=== PATIENT | male | born 1950 | race Caucasian/White ===

== ENCOUNTER 2025-01-18 20:22 | Emergency (ER) | payer OTHER, MEDICARE ==
[2025-01-18] MEDS ORDERED: KETOROLAC 30 MG/ML INJ ONE (21:27)
[2025-01-18] MEDS ORDERED: METOCLOPRAMIDE 10 MG/2mL INJ ONE (21:27)
[2025-01-18] MEDS ORDERED: NA CHLORIDE 0.9% 500 ML ONE (21:27)
--- NOTE | 2025-01-18 21:43 | RAD REPORT ---
EXAMINATION: Head Brain Wo Cont CLINICAL INDICATION: Male, 74 years old.headache new onset TECHNIQUE: Axial CT images from the skull base to the vertex without intravenous contrast. Coronal an d sagittal reformatted images were created from the data set. One or more of the following dose reduction techniques were used: Automated exposure control, adjustment of the mA and/or kV according to patient size, and/or iterative reconstruction. Unless otherwise specified, incidental findings do not require dedicated imaging follow-up. [id number]. COMPARISON: No prior exams FINDINGS: INTRACRANIAL: Acute intracranial hemorrhage at the prepontine cistern and extending into the upper ce rvical canal. 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 No hydrocephalus. No mass effect or midline shift. No significant white matter disease. VASCULATURE: No visualized abnormalities in the arteries or dural venous sinuses. SCALP/SKULL: No calvarial fracture identified. No acute soft tissue abnormality. SINUSES: The visualized paranasal sinuses are mostly clear. No significant mastoid fluid. IMPRESSION: Acute intracranial hemorrhage at the prepontine cistern which may be either aneurysmal or nonaneurysm al. The right cerebral hemisphere infarct. The findings were communicated to Dr. Gonzalez on 01/18/2025 9:40PM.
[2025-01-18 21:52] LABS: ALT/SGPT 58.0 U/L (16-61); AST/SGOT 18.0 U/L (15-37); Albumin 3.7 g/dL (3.4-5.0); Albumin/Globulin Ratio 1.1 (1.1-1.8); Alkaline Phosphatase 55.0 U/L (45-117); Anion Gap 10.7 mEq/L (5.0-15.0); BUN Blood Urea Nitrogen 12.0 mg/dL (7-18); Globulin 3.4 g/dL (2.3-3.5); Glucose Level 160.0 mg/dL (74-106); Potassium 3.7 mEq/L (3.5-5.1)
[2025-01-18] MEDS ORDERED: ONDANSETRON 4 MG/2 ML VIAL ONE (21:59)
[2025-01-18] MEDS ORDERED: FENTANYL CITR 100 MCG/2 ML ONE (21:59)
[2025-01-18] MEDS ORDERED: TRANEXAMIC ACID 1,000 MG/10 ML VIAL IV ONE (22:00)
[2025-01-18] MEDS ORDERED: NA CHLORIDE 0.9% 100 ML ONE (22:01)
[2025-01-18] MEDS ORDERED: Nicardipine/NS 25 MG/250 ML KIT IV ONE (22:09)
[2025-01-18 22:15] LABS: Absolute Lymphocytes (CBC) 0.9 K/uL (0.7-4.9); Hematocrit 39.3 % (39.6-49.0); Hemoglobin 13.6 g/dL (13.6-17.9); MCH 31.4 pg (27.0-35.0); MCHC 34.6 g/dL (32.0-36.0); MCV 90.9 fL (80-100); MPV 7.9 fL (7.6-11.3); Nucleated RBC Absolute Count 0.0 (0-0); Nucleated Red Blood Cells % 0.1 % (0-0); RBC Red Blood Cell Count 4.33 M/uL (4.33-5.43); White Blood Count 9.90 thou/uL (4.3-10.9)
[2025-01-18 22:26] LABS: PT Prothrombin Time 13.7 SECONDS (10-13.0); Protime INR 1.22
--- NOTE | 2025-01-18 22:45 | EDPHYS ---
Physician Documentation [facility] Name: Guido Byrne Age: 74 yrs Sex: Male : 1950 Arrival Date: 01/18/2025 Time: 20:22 Bed 10 Private MD: ED Physician Eben Gonzalez HPI: 01/18 20:29 This 74 yrs old Other Race Male presents to ER via Unassigned with complaints of sp4 Headache, Cough. 22:41 74-year-old male presents with acute onset of moderate to severe headache and neck pain sp4 after a coughing fit. . Historical: - Allergies: 20:34 Percodan; cp4 - Immunization history:: Adult Immunizations up to date. - Infectious Disease History:: Denies. - Social history:: Smoking status: Patient denies any tobacco usage or history of. - Family history:: not pertinent. ROS: 22:41 Constitutional: Negative for fever, chills, and weight loss, positive for moderate to sp4 severe headache 22:41 All other systems are negative, Exam: 22:37 Constitutional: This is a well developed, well nourished patient who is awake, alert, sp4 and in no acute distress. Head/Face: Normocephalic, atraumatic. Eyes: Pupils equal round and reactive to light, extra-ocular motions intact. Lids and lashes normal. Conjunctiva and sclera are not injected. Cornea within normal limits. Periorbital areas with no swelling, redness, or edema. ENT: Nares patent. No nasal discharge, no septal abnormalities noted. Tympanic membranes are normal and external auditory canals are clear. Oropharynx with no redness, swelling, or masses, exudates, or evidence of obstruction, uvula midline. Mucous membranes moist. Neck: Trachea midline, no thyromegaly or masses palpated, and no cervical lymphadenopathy. Supple, full range of motion without nuchal rigidity, or vertebral point tenderness. Chest/axilla: Normal chest wall appearance and motion. Nontender with no deformity. No lesions are appreciated. Cardiovascular: Regular rate and rhythm with a normal S1 and S2. No gallops, murmurs, or rubs. No pulse deficits. Respiratory: Lungs have equal breath sounds bilaterally, clear to auscultation and percussion. No rales, rhonchi or wheezes noted. No increased work of breathing, no retractions or nasal flaring. Abdomen/GI: Soft, with normal bowel sounds. No distension or tympany. No guarding or rebound. No evidence of tenderness throughout. Back: No spinal tenderness. No costovertebral tenderness. Skin: Warm, dry with normal turgor. Normal color with no rashes, no lesions, and no evidence of cellulitis. MS/ Extremity: Pulses equal, no cyanosis. Neurovascular intact. Full, normal range of motion. Neuro: Awake and alert, GCS 15, oriented to person, place, time, and situation. Cranial nerves II-XII grossly intact. Motor strength 5/5 in all extremities. Sensory grossly intact. Psych: Awake, alert, with orientation to person, place and time. Behavior, mood, and affect are within normal limits 22:37 ECG was reviewed by the Attending Physician. EKG 2209 rate 74, normal sinus rhythm normal EKG Vital Signs: 20:32 BP 174 / 100; Pulse 81; Resp 18; Temp 97.8; Pulse Ox 100% ; Weight 126.55 kg; Height 5 cp4 ft. 10 in. ; Pain 7/10; 21:45 BP 168 / 89; Pulse 75; Resp 18; Pulse Ox 97% on R/A; dd2 22:00 BP 164 / 107; Pulse 90; Resp 18; Pulse Ox 97% ; dd2 22:14 BP 152 / 76; Pulse 84; Resp 18; Pulse Ox 100% ; cp4 22:24 BP 143 / 76; cp4 22:48 BP 141 / 82; Pulse 76; Resp 18; Pulse Ox 99% ; cp4 20:32 Body Mass Index 40.03 (126.55 kg, 177.8 cm) cp4 20:32 Pain Scale: Adult cp4 NIH Stroke Scale Scores: 22:37 NIHSS Score: 0 sp4 [place] Coma Score: 21:03 Eye Response: spontaneous(4). Motor Response: obeys commands(6). Verbal Response: dd2 oriented(5). Total: 15. 22:37 Eye Response: spontaneous(4). Motor Response: obeys commands(6). Verbal Response: sp4 oriented(5). Total: 15. 22:42 Eye Response: spontaneous(4). Motor Response: obeys commands(6). Verbal Response: sp4 oriented(5). Total: 15. MDM: 20:33 Medical Screening Exam initiated sp4 22:42 Differential diagnosis: cervical epidural bleed, cluster headache, epidural hematoma, sp4 glaucoma, herpes zoster, migraine, otitis, tension headache, vasomotor headache. Data reviewed: vital signs, nurses notes, lab test result(s), EKG, radiologic studies, CT scan. 22:43 ED course: EXAMINATION: Head Brain Wo Cont CLINICAL INDICATION: Male, 74 years sp4 old.headache new onset TECHNIQUE: Axial CT images from the skull base to the vertex without intravenous contrast. Coronal and sagittal reformatted images were created from the data set. One or more of the following dose reduction techniques were used: Automated exposure control, adjustment of the mA and/or kV according to patient size, and/or iterative reconstruction. Unless otherwise specified, incidental findings do not require dedicated imaging follow-up. [id number]. COMPARISON: No prior exams FINDINGS: INTRACRANIAL: Acute intracranial hemorrhage at the prepontine cistern and extending into the upper cervical canal. 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 No hydrocephalus. No mass effect or midline shift. No significant white matter disease. VASCULATURE: No visualized abnormalities in the arteries or dural venous sinuses. SCALP/SKULL: No calvarial fracture identified. No acute soft tissue abnormality. SINUSES: The visualized paranasal sinuses are mostly clear. No significant mastoid fluid. IMPRESSION: Acute intracranial hemorrhage at the prepontine cistern which may be either aneurysmal or nonaneurysmal. The right cerebral hemisphere infarct. The findings were communicated to Dr. Gonzalez on 01/18/2025 9:40PM. . 01/18 21:00 Order name: CMP; Complete Time: 22:31 4 01/18 21:46 Order name: CBC with Diff; Complete Time: 22:31 4 01/18 21:46 Order name: PT-INR; Complete Time: 22:31 4 01/18 21:46 Order name: Troponin HS; Complete Time: 22:31 4 01/18 20:59 Order name: CT Head Brain wo Cont; Complete Time: 21:45 4 01/18 21:00 Order name: IV Saline Lock; Complete Time: 21:15 sp4 01/18 21:00 Order name: Labs collected and sent; Complete Time: 21:15 sp4 11 21:46 Order name: NPO; Complete Time: 22:11 sp4 01/18 21:46 Order name: Cardiac monitoring; Complete Time: 22:09 sp4 01/18 21:46 Order name: EKG - Nurse/Tech; Complete Time: 22:10 sp4 01/18 21:46 Order name: IV Saline Lock; Complete Time: 21:48 sp4 01/18 21:46 Order name: Labs collected and sent; Complete Time: 21:57 sp4 01/18 21:46 Order name: O2 Per Protocol; Complete Time: 21:48 sp4 01/18 21:46 Order name: O2 Sat Monitoring; Complete Time: 21:48 sp4 EC:09 Rate is 74 beats/min. Rhythm is regular, Normal Sinus Rhythm. QRS [place] is Normal. PA sp4 interval is normal. QRS interval is normal. QT interval is normal. No Q waves. T waves are Normal. No ST changes noted. Clinical impression: Normal ECG. Interpreted by me. Reviewed by me. Administered Medications: 21:33 Drug: TORadol - Ketorolac IVP 30 mg IVP once Route: IVP; Site: right antecubital; dd2 22:51 Follow up: Response: No adverse reaction cp4 21:34 Drug: metoCLOPramide IVP 10 mg IVP once; over 1 to 2 minutes Route: IVP; Site: right dd2 antecubital; 22:50 Follow up: Response: No adverse reaction cp4 21:34 Drug: NS 0.9% IV 500 ml 500 ml IV at 1 bolus once; to be given as a bolus over 30 dd2 minutes Volume: 500 ml; Route: IV; Rate: 1 bolus; Site: right antecubital; 22:50 Follow up: IV Status: Completed infusion cp4 22:04 Drug: Ondansetron IVP 8 mg IVP once; over 2 minutes Route: IVP; Site: right antecubital;dd2 22:16 Follow up: Response: No adverse reaction cp4 22:04 Drug: fentaNYL (PF) IVP 25 mcg IVP once Route: IVP; Site: right antecubital; dd2 22:16 Follow up: Response: No adverse reaction cp4 22:05 Drug: tranexamic acid IV 1000 mg IV at calculated rate once; IV once over 20 minutes dd2 Route: IV; Rate: calculated rate; Site: right antecubital; 22:47 Follow up: IV Status: Completed infusion cp4 22:48 Not Given (Physician Discretion): nicardipine5 mg/hr IV at calculated rate See cp4 Administration Instructions; SBP < 140 Disposition Summary: 01/18/25 22:45 Transfer Ordered Notes: Transfer Location: [facility] sp4 Reason: Higher level of care sp4 Condition: Stable sp4 Problem: new sp4 Symptoms: are unchanged sp4 Accepting Physician: [facility]'s attending neurology(01/18/25 22:49) cp4 Diagnosis - Acute intracranial hemorrhage prepontine cistern, sp4 Discharge Instructions: - Discharge Summary Sheet rv1 Forms: - SBAR form rv1 - Medication Reconciliation Form sp4 Critical care time excluding procedures: 22:45 Critical care time: Bedside Care: 36 minutes, Consultation: 12 minutes, Family sp4 Intervention: 12 minutes. Total time: 60 minutes NIH Stroke Scale - NIH Stroke Score Date: 01/18/2025 Time: 22:37 Total Score = 0 10. Dysarthria (speech clarity - read or repeat words) - 0(Normal) 11. Extinction and Inattention (visual/tactile/auditory/spatial/personal) - 0(No abnormality) 1a. Level of Consciousness (LOC) - 0(Alert) 1b. Level of Consciousness (LOC) (Month \T\ Age) - 0(Both) 1c. LOC Commands (Open \T\ Closes Eyes/Transportation Refrigeration Technician) - 0(Both) 2. Best Gaze (Lateral Gaze Paresis) - 0(Normal) 3. Visual Field Loss - 0(No visual loss) 4. Facial Palsy - 0(Normal) 5a. Left Arm: Motor (10-second hold) - 0(No drift) 5b. Right Arm: Motor (10-second hold) - 0(No drift) 6a. Left Leg: Motor (5-second hold - always test supine) - 0(No drift) 6b. Right Leg: Motor (5-second hold - always test supine) - 0(No drift) 7. Limb Ataxia (finger/nose \T\ heel/ricci - test with eyes open) - 0(Absent) 8. Sensory Loss (pinprick arms/legs/face) - 0(Normal) 9. Best Language: Aphasia (description/naming/reading) - 0(No aphasia) Initials: sp4 Signatures: Dispatcher [employer] Eben Chaves MD MD sp4 Steph Lowry cp4 RYAN HOGUE RN RN dd2 Corrections: (The following items were deleted from the chart) 22:49 22:45 [facility] attending neurology sp4 cp4
--- NOTE | 2025-01-18 22:45 | ER ---
Nurse's Notes [facility] Name: Guido Byrne Age: 74 yrs Sex: Male : 1950 Arrival Date: 01/18/2025 Time: 20:22 Bed 10 Private MD: Diagnosis: Acute intracranial hemorrhage prepontine cistern, Presentation: 01/18 20:32 Chief complaint: Patient states: Patient reports headache after having an orgasm and cp4 coughing spell. Started at 1800. Coronavirus screen: Client denies travel out of the [place] in the last 14 days. At this time, the client does not indicate any symptoms associated with coronavirus-19. Ebola Screen: Patient negative for fever greater than or equal to 101.5 degrees Fahrenheit, and additional compatible Ebola Virus Disease symptoms Patient denies exposure to infectious person. Patient denies travel to an Ebola-affected area in the 21 days before illness onset. No symptoms or risks identified at this time. Initial Sepsis Screen: Does the patient meet any 2 criteria? No. Patient's initial sepsis screen is negative. Does the patient have a suspected source of infection? No. Patient's initial sepsis screen is negative. Risk Assessment: Do you want to hurt yourself or someone else? Patient reports no desire to harm self or others. Onset of symptoms was January 18, 2025 at 18:00. 20:32 Method Of Arrival: Ambulatory 4 20:32 Acuity: JEFERSON 3 cp4 Triage Assessment: 20:34 Headache History: Denies prior headaches. General: Appears in no apparent distress. cp4 uncomfortable, Behavior is calm, cooperative, appropriate for age. Pain: Complains of pain in face Pain currently is 7 out of 10 on a pain scale. Pain began 2 hours ago. Also complains of no other associated symptoms. Neuro: Level of Consciousness is awake, alert, obeys commands, Oriented to person, place, time, situation. Historical: - Allergies: 20:34 Percodan; cp4 - Immunization history:: Adult Immunizations up to date. - Infectious Disease History:: Denies. - Social history:: Smoking status: Patient denies any tobacco usage or history of. - Family history:: not pertinent. Screenin:03 [facility] ED Fall Risk Assessment (Adult) History of falling in the last 3 months, dd2 including since admission No falls in past 3 months (0 pts) Confusion or Disorientation No (0 pts) Intoxicated or Sedated No (0 pts) Impaired Gait No (0 pts) Mobility Assist Device Used No (0 pt) Altered Elimination No (0 pt) Score/Fall Risk Level 0 - 2 = Low Risk Oriented to surroundings, Maintained a safe environment, Educated pt \T\ family on fall prevention, incl call for assistance when getting out of bed, Assessed \T\ reinforced patient's understanding of fall precautions, Hourly rounding (assess needs \T\ fall precautionary measures) done. Abuse screen: Denies threats or abuse. Denies injuries from another. Nutritional screening: No deficits noted. Tuberculosis screening: No symptoms or risk factors identified. Assessment: 21:03 General: Appears in no apparent distress. uncomfortable, Behavior is calm, cooperative, dd2 appropriate for age. Pain: Complains of pain in head Pain currently is 10 out of 10 on a pain scale. Neuro: Level of Consciousness is awake, alert, obeys commands, Oriented to person, place, time, situation, Appropriate for age Reports headache in entire. Cardiovascular: Denies chest pain, Patient's skin is warm and dry. Respiratory: No deficits noted. GI: Reports nausea. : No deficits noted. No signs and/or symptoms were reported regarding the genitourinary system. EENT: No deficits noted. No signs and/or symptoms were reported regarding the EENT system. Derm: No deficits noted. No signs and/or symptoms reported regarding the dermatologic system. Musculoskeletal: No deficits noted. No signs and/or symptoms reported regarding the musculoskeletal system. Circulation, motion, and sensation intact. Range of motion: intact in all extremities. Vital Signs: 20:32 BP 174 / 100; Pulse 81; Resp 18; Temp 97.8; Pulse Ox 100% ; Weight 126.55 kg; Height 5 cp4 ft. 10 in. ; Pain 7/10; 21:45 BP 168 / 89; Pulse 75; Resp 18; Pulse Ox 97% on R/A; dd2 22:00 BP 164 / 107; Pulse 90; Resp 18; Pulse Ox 97% ; dd2 22:14 BP 152 / 76; Pulse 84; Resp 18; Pulse Ox 100% ; cp4 22:24 BP 143 / 76; cp4 22:48 BP 141 / 82; Pulse 76; Resp 18; Pulse Ox 99% ; cp4 20:32 Body Mass Index 40.03 (126.55 kg, 177.8 cm) cp4 20:32 Pain Scale: Adult cp4 [place] Coma Score: 21:03 Eye Response: spontaneous(4). Motor Response: obeys commands(6). Verbal Response: dd2 oriented(5). Total: 15. 22:37 Eye Response: spontaneous(4). Motor Response: obeys commands(6). Verbal Response: sp4 oriented(5). Total: 15. 22:42 Eye Response: spontaneous(4). Motor Response: obeys commands(6). Verbal Response: sp4 oriented(5). Total: 15. NIH Stroke Scale Scores: 22:37 NIHSS Score: 0 sp4 ED Course: 20:26 Patient arrived in ED. mr 20:29 Eben Gonzalez MD is Attending Physician. sp4 20:34 Triage completed. cp4 20:34 Arm band placed on right wrist. Patient placed in waiting room. cp4 21:03 Patient has correct armband on for positive identification. Bed in low position. Call dd2 light in reach. Side rails up X 1. Client placed on continuous cardiac and pulse oximetry monitoring. NIBP monitoring applied. 21:03 Patient maintains SpO2 saturation greater than 95% on room air. dd2 21:15 CMP Sent. dd2 21:15 No provider procedures requiring assistance completed. Initial lab(s) drawn, by ak, dd2 sent to lab. Inserted saline lock: 20 gauge in right antecubital area, using aseptic technique. Blood collected. Flushed with 10 mL NS. 21:19 CT Head Brain wo Cont In Process Unspecified. EDMS 21:53 Initiated transfer with Samantha at [facility], connected Dr. Gonzalez with Neurologist Dr. russell Mendiola. 22:10 EKG done, by ED staff, reviewed by bEen Gonzalez MD. dd2 22:[address] Mendiola to [place] [id number] [facility] transfer. 22:48 Provided Education on: transfer. cp4 22:48 Patient transferred, IV remains in place. cp4 Administered Medications: 21:33 Drug: TORadol - Ketorolac IVP 30 mg IVP once Route: IVP; Site: right antecubital; dd2 22:51 Follow up: Response: No adverse reaction cp4 21:34 Drug: metoCLOPramide IVP 10 mg IVP once; over 1 to 2 minutes Route: IVP; Site: right dd2 antecubital; 22:50 Follow up: Response: No adverse reaction cp4 21:34 Drug: NS 0.9% IV 500 ml 500 ml IV at 1 bolus once; to be given as a bolus over 30 dd2 minutes Volume: 500 ml; Route: IV; Rate: 1 bolus; Site: right antecubital; 22:50 Follow up: IV Status: Completed infusion cp4 22:04 Drug: Ondansetron IVP 8 mg IVP once; over 2 minutes Route: IVP; Site: right antecubital;dd2 22:16 Follow up: Response: No adverse reaction cp4 22:04 Drug: fentaNYL (PF) IVP 25 mcg IVP once Route: IVP; Site: right antecubital; dd2 22:16 Follow up: Response: No adverse reaction cp4 22:05 Drug: tranexamic acid IV 1000 mg IV at calculated rate once; IV once over 20 minutes dd2 Route: IV; Rate: calculated rate; Site: right antecubital; 22:47 Follow up: IV Status: Completed infusion cp4 22:48 Not Given (Physician Discretion): nicardipine5 mg/hr IV at calculated rate See cp4 Administration Instructions; SBP < 140 Medication: 21:03 VIS not applicable for this client. dd2 Outcome: 22:45 ER care complete, transfer ordered by MD. wong 22:48 Transferred by helicopter to [facility], Transfer form completed. cp4 X-rays sent w/ patient. 22:48 Condition: stable 22:48 Instructed on the need for transfer, 22:49 Patient left the ED. cp4 NIH Stroke Scale - NIH Stroke Score Date: 01/18/2025 Time: 22:37 Total Score = 0 10. Dysarthria (speech clarity - read or repeat words) - 0(Normal) 11. Extinction and Inattention (visual/tactile/auditory/spatial/personal) - 0(No abnormality) 1a. Level of Consciousness (LOC) - 0(Alert) 1b. Level of Consciousness (LOC) (Month \T\ Age) - 0(Both) 1c. LOC Commands (Open \T\ Closes Eyes/Mine Utility Operator) - 0(Both) 2. Best Gaze (Lateral Gaze Paresis) - 0(Normal) 3. Visual Field Loss - 0(No visual loss) 4. Facial Palsy - 0(Normal) 5a. Left Arm: Motor (10-second hold) - 0(No drift) 5b. Right Arm: Motor (10-second hold) - 0(No drift) 6a. Left Leg: Motor (5-second hold - always test supine) - 0(No drift) 6b. Right Leg: Motor (5-second hold - always test supine) - 0(No drift) 7. Limb Ataxia (finger/nose \T\ heel/ricci - test with eyes open) - 0(Absent) 8. Sensory Loss (pinprick arms/legs/face) - 0(Normal) 9. Best Language: Aphasia (description/naming/reading) - 0(No aphasia) Initials: sp4 Signatures: Dispatcher [employer] EDIN Kajal Ballard, Reg Reg mr DanielsErum rv1 Eben Gonzalez MD MD sp4 Steph Lowry cp4 RYAN HOGUE RN RN dd2
[2025-01-18 22:53] VITALS: TEMP 97.8
[2025-01-18 23:01] VITALS: BP 141/82; O2SAT 99
== END 2025-01-18 22:49 | disposition short-term general hospital (02) ==
LOC: ER 20:22
DX: I62.9 Nontraumatic intracranial hemorrhage, unspecified (principal)
CPT/HCPCS: 96365; 96361; 85025; 36415; 85610; 84484; 80053; 70450; 96375; 99285; J2765; J3010; J2405; J7040